=== PATIENT | male | born 1990 | race Caucasian/White ===

== ENCOUNTER 2018-05-08 15:59 | Inpatient (IN) | payer MEDICAID, SELFPAY ==
[2018-05-08 16:13] VITALS: BMI 20.5
[2018-05-08 16:26] VITALS: BP 115/60; PULSE 94; RESP 16; TEMP 35.7; O2SAT 95
[2018-05-08] MEDS: Buprenorphine HCl 2 MG TAB.SUBL SL (17:28)
[2018-05-08] MEDS: cloNIDine HCl 0.1 MG Tablet PO (17:50)
[2018-05-08] MEDS: hydrOXYzine PAM 25 MG Capsule 50 MG PO (17:50)
[2018-05-08] MEDS: Azithromycin 250 MG Tablet 500 MG PO (17:50)
--- NOTE | 2018-05-08 18:10 | PCM.HP.STD ---
Problem List (1) Heroin dependence Status: Chronic (2) Hepatitis C Status: Chronic Qualifiers: Viral hepatitis chronicity: carrier Qualified Code(s): B18.2 - Chronic viral hepatitis C (3) Hepatitis B Status: Chronic Qualifiers: Viral hepatitis chronicity: carrier Qualified Code(s): B18.1 - Chronic viral hepatitis B without delta-agent (4) Nicotine dependence Status: Acute Qualifiers: Nicotine product type: cigarettes (5) Heroin withdrawal Status: Acute History of Present Illness Date of Admission: 05/08/18 Chief Complaint: Heroin withdrawal Patient is a 27 yo WM who presents with heroin withdrawal, admitted through [facility]. He has been using heroin on and off since age 14. He currently uses 1.5 to 2 gram of heroin IV daily, with last use around 3 hours prior to admission. He has some restlessness, but no abdominal pain, nausea, vomiting, or tremor. He is complaining of URI symptoms with productive cough. He felt feverish earlier. He had inpatient treatment followed by Suboxone outpatient treatment about one year ago. He maintained treatment for about 8 month but had to stop due to lack of insurance. He relapsed and using for past 5 month. Past Medical History Past Medical History (Chronic Problems): Chronic Problems (Last Updated 05/08/18 @ 18:09 by Shamar Villanueva MD) Heroin dependence (Chronic) Hepatitis C (Chronic) Hepatitis B (Chronic) Medical History: Medical History (Last Reviewed 05/08/18 @ 18:16 by Shamar Villanueva MD) Hepatitis B B19.10 Hepatitis C B19.20 Heroin dependence F11.20 Allergies No Known Allergies Allergy (Verified 05/08/18 16:13) Home Medications: Ambulatory Orders Medication Instructions Recorded NK [NK] 05/08/18 Surgical History: no surgical history Smoking Status: Current some day smoker Alcohol: None Drugs: Heroin - *Family History Maternal History Items: Heart Disease - Maternal grandfather. Review of Systems Comment: ROS: In general: Patient has been in fair health. No significant constitutional symptoms. HEENT: Unremarkable. Patient denied of any dizziness, chronic headache, blurred vision, double vision, dry mouth, or nasal congestion. CV/respiratory: There is no exertional shortness of breath, chest pain, palpitation, wheezing, cough, claudication, cold feet, or peripheral edema. GI: Patient denied any abdominal pain, nausea, vomiting, diarrhea, constipation, melena, or hematochezia. : Patient denied any significant urinary symptoms. Neurology: Unremarkable. There is no history of seizure as an adult. Psychological: Unremarkable. Endocrine: Unremarkable. Musculoskeletal: Unremarkable. VTE Information - Inpt Only VTE Present on Admission: No VTE Mechan Device Prophylaxis: None Reason prophylaxis not ordered:: Treatment Not Indicated - early ambulation. Patient Problems: Active and Suspected Problems (Last Updated 05/08/18 @ 18:09 by Shamar Villanueva MD) Nicotine dependence (Acute) Heroin withdrawal (Acute) Objective: In general, patient is a somewhat cachectic appearing young male. HEENT: Head is atraumatic, and normocephalic. Pupils are equal, round, and reactive to light and accommodations. Neck is supple. There is no lymphadenopathy, or thyromegaly. Oral mucosa is pink, and moist. There are no lesions. Heart: Auscultation is normal with regular rhythm and rate. There is no extra heart sounds, or murmurs. S1 and S2 are present. Point of maximal impulse is not displaced. Lungs: Lungs are clear to auscultation bilaterally. There is no wheezing, or crackles. Abdomen: Abdominal wall is non-tender, and non-distended. There is no palpable mass or organomegaly. Normoactive bowel sounds are present. Extremities: There is no cyanosis or clubbing. Peripheral pulses are palpable. There is no edema. Skin: Needle tracks arms, hands, and distal legs. Neurological: CN II - XII are intact. Sensory and motor functions are grossly normal with no obvious deficit. Cerebellar functions are within normal range. Gait was not tested. - Physical Exam Vital Signs Temp Pulse Resp BP Pulse Ox 96.3 F L 94 16 115/60 95 05/08/18 16:26 05/08/18 16:26 05/08/18 16:26 05/08/18 16:26 05/08/18 16:26 Oxygen Delivery Method Room Air Weight: 151 lb Body Mass Index (BMI) 20.5 Assessment/Plan All Active Problems (Last Updated 05/08/18 @ 18:09 by Shamar Villanueva MD) Nicotine dependence (Acute) Heroin withdrawal (Acute) Patient is a 27 yo WM who presents with heroin withdrawal, admitted through [facility]. He has been using heroin on and off since age 14. He currently uses 1.5 to 2 gram of heroin IV daily, with last use around 3 hours prior to admission. He has some restlessness, but no abdominal pain, nausea, vomiting, or tremor. He is complaining of URI symptoms with productive cough. He felt feverish earlier. He had inpatient treatment followed by Suboxone outpatient treatment about one year ago. He maintained treatment for about 8 month but had to stop due to lack of insurance. He relapsed and using for past 5 month. #1 Heroin dependency / withdrawal. Follow [facility] protocol with Subutex tapering. #2 Nicotine dependency. Nicotine patch provided. Cessation of smoking was advised. #3 History of Hep B / C. Check CMP. He needs follow up as outpatient. VTE prophylaxis: early ambulation. GI prophylaxis: H2 jennifer po. He is full code. Disposition: To be determined. Code Visit Inpatient E&M: 25249 Init Hosp L2
[2018-05-08 18:55] LABS: Absolute Lymphocyte Count 1.07 X10^3/ul (0.83-4.51); Absolute Neutrophil Count 5.9 X10^3/uL (2.0-7.7); Basophil# 0.01 X10^3/uL; Basophil% 0.1 % (0-1); Eosinophil# 0.04 X10^3/uL; Eosinophils% 0.5 % (0-5); Hematocrit 40.5 % (40-54); Hemoglobin 13.5 g/dl (13.0-16.5); Lymphocyte # 1.07 X10^3/ul (4.0); Lymphocyte % 13.9 % (19-41); Mean Corp Hgb Conc 33.3 g/gl (32-36); Mean Corpuscular Hgb 30.9 pg (27.0-32.0); Mean Corpuscular Volume 92.7 fL (80-94); Mean Platelet Vol. 10.1 fl (6.2-12.0); Monocyte# 0.65 X10^3/uL; Monocyte% 8.4 % (0-10); Neutrophil # 5.91 X10^3/uL (2.7-7.7); Neutrophil % 76.8 % (47-70); POSITIVE COUNT NO; POSITIVE DIFFERENTIAL NO; POSITIVE MORPHOLOGY NO; Platelet Count 219 K/mm3 (150-450); RBC Distribution Width CV 12.8 % (11.6-14.6); RBC Distribution Width SD 42.7 fl (35.1-43.9); Red Blood Count 4.37 M/mm3 (4.6-6.2); White Blood Count 7.7 K/mm3 (4.4-11.0)
[2018-05-08 19:28] LABS: ALB/GLOB Ratio 0.8 RATIO (0.9-2.4); AST(SGOT) 10 U/L (15-37); Alanine Aminotransfer ALT/SGPT 19 U/L (16-61); Albumin, Serum 3.5 g/dL (3.2-5.0); Alkaline Phosphatase 74 U/L (45-117); Anion Gap 4 (5-15); BUN 11 mg/dL (7-18); BUN/Creat Ratio 11.4 RATIO (10-20); Calcium,Total 8.8 mg/dL (8.5-10.1); Chloride 105 mmol/L (98-107); Creatinine, Serum 0.97 mg/dL (0.70-1.30); EST Glomerular Filtration Rate 98 mL/min (>60); Est Glom Filt Rate - Afr Amer 119 mL/min (>60); Estimated Creatinine Clearance 109.84 ml/min; Globulin 4.4 g/dL (2.2-4.2); Glucose 71 mg/dL (74-106); Potassium 3.3 mmol/L (3.5-5.1); Protein, Total 7.9 g/dL (6.4-8.2); Sodium Level 138 mmol/L (136-145)
[2018-05-08 19:32] VITALS: BP 104/54; PULSE 77; RESP 16; TEMP 36.8; O2SAT 96
[2018-05-08] MEDS: Famotidine 20 MG Tablet PO (22:15)
[2018-05-09 01:30] VITALS: BP 114/66; PULSE 74; RESP 16; TEMP 36.9
[2018-05-09] MEDS: Buprenorphine HCl 2 MG TAB.SUBL SL ×3 (01:30→18:18)
[2018-05-09] MEDS: Pramipexole Di-HCl 0.25 MG Tablet PO ×2 (01:35→21:55)
[2018-05-09] MEDS: cloNIDine HCl 0.1 MG Tablet PO (01:35)
[2018-05-09 06:06] VITALS: BP 105/55; PULSE 62; RESP 16; TEMP 37.4
--- NOTE | 2018-05-09 08:05 | PCM.PN.HOSP ---
Patient Problems: Active and Suspected Problems (Last Reviewed 05/08/18 @ 18:16 by Shamar Villanueva MD) Nicotine dependence (Acute) Heroin withdrawal (Acute) Subjective: Patient with no acute events overnight per self and per nursing report. He states that he is feeling improved since initiation on Subutex and his withdrawal symptoms have lessened. He notes he did not sleep well but otherwise no acute complaints at this time. Patient denies fevers, chills, nausea, emesis, abdominal pain, chest pain or dyspnea. Objective: Physical Examination: General: awake, alert, oriented x 3 and cooperative, seated upright in bed in no apparent distress. Skin: normal color, turgor, no icterus, cyanosis except several diffuse track boyce on bilateral extremities primarily in the hands and feet with no appearance of acute infection. HEENT: AT/NC, EOMI, PERRLA, MMM. Lungs: CTA bilaterally, moderate effort, mild decrease BL bases, no rales, ronchi or wheezing. Heart: Regular rate and rhythm; no gallop, rub audible. Abdomen: soft, thin habitus, NTTP, ND, normal BS. Extremities: no cyanosis, clubbing, see skin. Neurological: patient awake, alert, oriented x 3; cognitive function intact; pupils equally reactive to light and accomodation; cranial nerves II-XII grossly normal, moving all 4 extremities, no focal deficits, strength mildly to moderately globally decreased secondary to acute presentation. Psychiatric: affect appears normal, no acute evidence of depressive or anxiety feelings. Vitals/I&O's: Vital Signs Temp Pulse Resp BP Pulse Ox 99.3 F H 62 16 105/55 L 96 05/09/18 06:06 05/09/18 06:06 05/09/18 06:06 05/09/18 06:06 05/08/18 19:32 Oxygen Delivery Method Room Air Weight: 151 lb Body Mass Index (BMI) 20.5 Laboratory Results 05/08/18 18:36: WBC 7.7, RBC 4.37 L, Hgb 13.5, Hct 40.5, MCV 92.7, MCH 30.9, MCHC 33.3, RDW 12.8, RDW Differential 42.7, Plt Count 219, MPV 10.1, Immature Gran % (Auto) 0.300, Neut % (Auto) 76.8 H, Lymph % (Auto) 13.9 L, [place] % (Auto) 8.4, Eos % (Auto) 0.5, Baso % (Auto) 0.1, Absolute Neuts (auto) 5.9, Absolute Lymphs (auto) 1.07, Total Counted Not Reportable 05/08/18 18:36: Sodium 138, Potassium 3.3 L, Chloride 105, Carbon Dioxide 29.0, Anion Gap 4 L, BUN 11, Creatinine 0.97, Estim Creat Clear Calc 109.84, Est GFR (MDRD) Af Amer 119, Est GFR (MDRD) Non-Af 98, BUN/Creatinine Ratio 11.4, Glucose 71 L, Calcium 8.8, Total Bilirubin 0.30, AST 10 L, ALT 19, Alkaline Phosphatase 74, Total Protein 7.9, Albumin 3.5, Globulin 4.4 H, Albumin/Globulin Ratio 0.8 L Current Medications Acetaminophen (Tylenol) 500 mg PO Q4H PRN PRN PRN Reason: Temp > 100.4 F Al Hydroxide/Mg Hydroxide (Mylanta Ii) 30 ml PO Q6H PRN PRN PRN Reason: Gastric burning Azithromycin (Zithromax) 500 mg PO Q24 [facility] Last Admin: 05/08/18 17:50 Dose: 500 mg Bisacodyl (Dulcolax) 5 mg PO DAILY PRN PRN PRN Reason: Constipation Buprenorphine HCl (Buprenorphine Hcl) 4 mg SL Q8H [facility] PRN Reason: Taper Stop: 05/11/18 21:29 Last Admin: 05/09/18 01:30 Dose: 4 mg Chlordiazepoxide (Librium) 25 mg PO Q6H PRN PRN PRN Reason: Anxiety Score 2-3/3 Clonidine (Catapres) 0.1 mg PO Q2H PRN PRN PRN Reason: Hot/Cold Sweats or Anxiety Last Admin: 05/09/18 01:35 Dose: 0.1 mg Dicyclomine HCl (Bentyl) 20 mg PO Q6H PRN PRN PRN Reason: Abdomnial Discomfort Famotidine (Pepcid) 20 mg PO BID [facility] Last Admin: 05/08/18 22:15 Dose: 20 mg Folic Acid (Folic Acid) 1 mg PO DAILY@0800 [facility] Hydroxyzine HCl (Vistaril Vial) 50 mg IM Q6H PRN PRN PRN Reason: Breakthrough Anxiety Hydroxyzine Pamoate (Vistaril Pamoate Capsule) 50 mg PO Q6H PRN PRN PRN Reason: Mild Anxiety (score 1/3) Last Admin: 05/08/18 17:50 Dose: 50 mg Ibuprofen (Motrin) 600 mg PO Q8H PRN PRN PRN Reason: Mild-Moderate Pain (1-5/10) Loperamide HCl (Imodium) 2 - 4 mg PO UD PRN PRN Reason: LOOSE STOOLS Magnesium Hydroxide (Milk Of Magnesia) 30 ml PO DAILY PRN PRN PRN Reason: Constipation Methocarbamol (Methocarbamol) 750 mg PO Q6H PRN PRN PRN Reason: Muscle Aches Multivitamins/Minerals (Multivitamin With Minerals) 1 tablet PO DAILYCM [facility] Nicotine (Nicoderm Cq (Pbkc)) 21 mg TRANSDERM. DAILY [facility] Last Admin: 05/08/18 17:50 Dose: 21 mg Nutritional Formula (Lactose Free) (Ensure Enlive) 120 ml PO 4X/DAY [facility] Ondansetron HCl (Zofran) 4 mg IV Q8H PRN PRN PRN Reason: NAUSEA Ondansetron HCl (Zofran Odt) 4 mg PO Q6H PRN PRN PRN Reason: NAUSEA Pramipexole Dihydrochloride (Mirapex) 0.25 mg PO Q12H PRN PRN PRN Reason: RESTLESS LEGS Last Admin: 05/09/18 01:35 Dose: 0.25 mg Quetiapine Fumarate (Seroquel) 25 mg PO Q6H PRN PRN PRN Reason: Moderate Anxiety (score 2/3) Senna (Senokot) 1 tablet PO QHS PRN PRN Reason: Constipation Thiamine HCl (Vitamin B1) 100 mg PO DAILYCM [facility] Trazodone HCl (Desyrel) 50 mg PO QHS [facility] Medical Necessity - Tobacco Use Smoking Status: Current some day smoker Assessment/Plan All Active Problems (Last Reviewed 05/08/18 @ 18:16 by Shamar Villanueva MD) Nicotine dependence (Acute) Heroin withdrawal (Acute) The patient is a 27 y/o M w/ PMHx: History of IVDA w/ Heroine intermittently since age 14 (1.5-2 gm daily average, last use ~ 3 hours prior to admission), Hx ? Hepatitis B and C, Tobacco use who presents to the [facility] on 05/08/18 w/ noted acute opiate withdrawal. (1) Acute Opiate Withdrawal: Admitted to [place], routine labs obtained, initiated and continued on [facility] service protocol with tapering course of Subutex, as needed Seroquel, Librium, Sinemet, Catapres, Bentyl, Vistaril, IV fluids, IV antiemetics, Tylenol as needed for pain. Once patient clinically improved and completion of taper nearing will plan [facility] assistance for transition to next level of rehabilitation care. (2) Polysubstance Abuse, IVDA Hx, ? History of Hepatitis C and B, Chronic: Patient currently not candidate for hep C treatment currently as needs to be clean, sober x 6 months w/ documented attendance NA or AA meetings, counseling and ongoing negative drug screens of which he was educated. HIV, hepatitis panel pending to assess for co-infection pending. Encouraged PCP establishment and follow-up. (3) Tobacco Abuse: Encouraged cessation, inpatient consultation per RT, NR if desired. (4) Hypokalemia: Admission K+ 3.3, supplementation given, mag pending. (5) DVT Prophylaxis: Low risk, ambulation advised. Code Visit Inpatient E&M: 40051 Subs Hosp L2
--- NOTE | 2018-05-09 08:16 | PN_ITS ---
Patient Problems: Active and Suspected Problems (Last Reviewed 05/08/18 @ 18:16 by Shamar Villanueva MD) Nicotine dependence (Acute) Heroin withdrawal (Acute) Subjective: Patient with no acute events overnight per self and per nursing report. He states that he is feeling improved since initiation on Subutex and his withdrawal symptoms have lessened. He notes he did not sleep well but otherwise no acute complaints at this time. Patient denies fevers, chills, nausea, emesis, abdominal pain, chest pain or dyspnea. Objective: Physical Examination: General: awake, alert, oriented x 3 and cooperative, seated upright in bed in no apparent distress. Skin: normal color, turgor, no icterus, cyanosis except several diffuse track boyce on bilateral extremities primarily in the hands and feet with no appearance of acute infection. HEENT: AT/NC, EOMI, PERRLA, MMM. Lungs: CTA bilaterally, moderate effort, mild decrease BL bases, no rales, ronchi or wheezing. Heart: Regular rate and rhythm; no gallop, rub audible. Abdomen: soft, thin habitus, NTTP, ND, normal BS. Extremities: no cyanosis, clubbing, see skin. Neurological: patient awake, alert, oriented x 3; cognitive function intact; pupils equally reactive to light and accomodation; cranial nerves II-XII grossly normal, moving all 4 extremities, no focal deficits, strength mildly to moderately globally decreased secondary to acute presentation. Psychiatric: affect appears normal, no acute evidence of depressive or anxiety feelings. Vitals/I&O's: Vital Signs Temp Pulse Resp BP Pulse Ox 99.3 F H 62 16 105/55 L 96 05/09/18 06:06 05/09/18 06:06 05/09/18 06:06 05/09/18 06:06 05/08/18 19:32 Oxygen Delivery Method Room Air Weight: 151 lb Body Mass Index (BMI) 20.5 Laboratory Results 05/08/18 18:36: WBC 7.7, RBC 4.37 L, Hgb 13.5, Hct 40.5, MCV 92.7, MCH 30.9, MCHC 33.3, RDW 12.8, RDW Differential 42.7, Plt Count 219, MPV 10.1, Immature Gran % (Auto) 0.300, Neut % (Auto) 76.8 H, Lymph % (Auto) 13.9 L, [place] % (Auto) 8.4, Eos % (Auto) 0.5, Baso % (Auto) 0.1, Absolute Neuts (auto) 5.9, Absolute Lymphs (auto) 1.07, Total Counted Not Reportable 05/08/18 18:36: Sodium 138, Potassium 3.3 L, Chloride 105, Carbon Dioxide 29.0, Anion Gap 4 L, BUN 11, Creatinine 0.97, Estim Creat Clear Calc 109.84, Est GFR ( MDRD) Af Amer 119, Est GFR (MDRD) Non-Af 98, BUN/Creatinine Ratio 11.4, Glucose 71 L, Calcium 8.8, Total Bilirubin 0.30, AST 10 L, ALT 19, Alkaline Phosphatase 74, Total Protein 7.9, Albumin 3.5, Globulin 4.4 H, Albumin/Globulin Ratio 0.8 L Current Medications Acetaminophen (Tylenol) 500 mg PO Q4H PRN PRN PRN Reason: Temp > 100.4 F Al Hydroxide/Mg Hydroxide (Mylanta Ii) 30 ml PO Q6H PRN PRN PRN Reason: Gastric burning Azithromycin (Zithromax) 500 mg PO Q24 [facility] Last Admin: 05/08/18 17:50 Dose: 500 mg Bisacodyl (Dulcolax) 5 mg PO DAILY PRN PRN PRN Reason: Constipation Buprenorphine HCl (Buprenorphine Hcl) 4 mg SL Q8H [facility] PRN Reason: Taper Stop: 05/11/18 21:29 Last Admin: 05/09/18 01:30 Dose: 4 mg Chlordiazepoxide (Librium) 25 mg PO Q6H PRN PRN PRN Reason: Anxiety Score 2-3/3 Clonidine (Catapres) 0.1 mg PO Q2H PRN PRN PRN Reason: Hot/Cold Sweats or Anxiety Last Admin: 05/09/18 01:35 Dose: 0.1 mg Dicyclomine HCl (Bentyl) 20 mg PO Q6H PRN PRN PRN Reason: Abdomnial Discomfort Famotidine (Pepcid) 20 mg PO BID [facility] Last Admin: 05/08/18 22:15 Dose: 20 mg Folic Acid (Folic Acid) 1 mg PO DAILY@0800 [facility] Hydroxyzine HCl (Vistaril Vial) 50 mg IM Q6H PRN PRN PRN Reason: Breakthrough Anxiety Hydroxyzine Pamoate (Vistaril Pamoate Capsule) 50 mg PO Q6H PRN PRN PRN Reason: Mild Anxiety (score 1/3) Last Admin: 05/08/18 17:50 Dose: 50 mg Ibuprofen (Motrin) 600 mg PO Q8H PRN PRN PRN Reason: Mild-Moderate Pain (1-5/10) Loperamide HCl (Imodium) 2 - 4 mg PO UD PRN PRN Reason: LOOSE STOOLS Magnesium Hydroxide (Milk Of Magnesia) 30 ml PO DAILY PRN PRN PRN Reason: Constipation Methocarbamol (Methocarbamol) 750 mg PO Q6H PRN PRN PRN Reason: Muscle Aches Multivitamins/Minerals (Multivitamin With Minerals) 1 tablet PO DAILYCM [facility] Nicotine (Nicoderm Cq (Pbkc)) 21 mg TRANSDERM. DAILY [facility] Last Admin: 05/08/18 17:50 Dose: 21 mg Nutritional Formula (Lactose Free) (Ensure Enlive) 120 ml PO 4X/DAY [facility] Ondansetron HCl (Zofran) 4 mg IV Q8H PRN PRN PRN Reason: NAUSEA Ondansetron HCl (Zofran Odt) 4 mg PO Q6H PRN PRN PRN Reason: NAUSEA Pramipexole Dihydrochloride (Mirapex) 0.25 mg PO Q12H PRN PRN PRN Reason: RESTLESS LEGS Last Admin: 05/09/18 01:35 Dose: 0.25 mg Quetiapine Fumarate (Seroquel) 25 mg PO Q6H PRN PRN PRN Reason: Moderate Anxiety (score 2/3) Senna (Senokot) 1 tablet PO QHS PRN PRN Reason: Constipation Thiamine HCl (Vitamin B1) 100 mg PO DAILYCM [facility] Trazodone HCl (Desyrel) 50 mg PO QHS [facility] Medical Necessity - Tobacco Use Smoking Status: Current some day smoker Assessment/Plan All Active Problems (Last Reviewed 05/08/18 @ 18:16 by Shamar Villanueva MD) Nicotine dependence (Acute) Heroin withdrawal (Acute) The patient is a 27 y/o M w/ PMHx: History of IVDA w/ Heroine intermittently since age 14 (1.5-2 gm daily average, last use ~ 3 hours prior to admission), Hx ? Hepatitis B and C, Tobacco use who presents to the [facility] at [facility] on 05/08/18 w/ noted acute opiate withdrawal. (1) Acute Opiate Withdrawal: Admitted to [place], routine labs obtained, initiated and continued on [facility] service protocol with tapering course of Subutex, as needed Seroquel, Librium, Sinemet, Catapres, Bentyl, Vistaril, IV fluids, IV antiemetics, Tylenol as needed for pain. Once patient clinically improved and completion of taper nearing will plan [facility] assistance for transition to next level of rehabilitation care. (2) Polysubstance Abuse, IVDA Hx, ? History of Hepatitis C and B, Chronic: Patient currently not candidate for hep C treatment currently as needs to be clean, sober x 6 months w/ documented attendance NA or AA meetings, counseling and ongoing negative drug screens of which he was educated. HIV, hepatitis panel pending to assess for co-infection pending. Encouraged PCP establishment and follow-up. (3) Tobacco Abuse: Encouraged cessation, inpatient consultation per RT, NR if desired. (4) Hypokalemia: Admission K+ 3.3, supplementation given, mag pending. (5) DVT Prophylaxis: Low risk, ambulation advised. Code Visit Inpatient E&M: 18214 Subs Hosp L2
[2018-05-09 08:42] LABS: Magnesium 2.2 mg/dL (1.6-2.6)
[2018-05-09] MEDS: Azithromycin 250 MG Tablet 500 MG PO (09:45)
[2018-05-09] MEDS: Multivitamins,Ther W-Minerals Tablet 1 TABLET PO (09:46)
[2018-05-09] MEDS: Thiamine Hydrochloride 100 MG Tablet PO (09:46)
[2018-05-09] MEDS: Famotidine 20 MG Tablet PO ×2 (09:46→21:55)
[2018-05-09] MEDS: Folic Acid 1 MG Tablet PO (09:47)
[2018-05-09 09:57] LABS: HIV - WCH Non-Reactive (Nonreactive)
[2018-05-09 10:00] VITALS: BP 108/59; PULSE 66; RESP 16; TEMP 36.9
[2018-05-09 14:00] VITALS: BP 115/68; PULSE 71; RESP 16; TEMP 37.2
[2018-05-09 18:00] VITALS: BP 122/74; PULSE 80; RESP 16; TEMP 36.9
[2018-05-09 20:47] VITALS: BP 116/55; PULSE 72; RESP 16; TEMP 36.5
[2018-05-09] MEDS: QUEtiapine 25 MG Tablet PO (21:55)
[2018-05-09] MEDS: chlordiazePOXIDE 25 MG Capsule PO (21:55)
[2018-05-09] MEDS: traZODone 50 MG Tablet PO (21:55)
[2018-05-10] MEDS: Buprenorphine HCl 2 MG TAB.SUBL SL ×2 (01:32→09:30)
[2018-05-10 01:35] VITALS: BP 108/59; PULSE 61; RESP 16; TEMP 37.1
--- NOTE | 2018-05-10 08:04 | PCM.PN.HOSP ---
Patient Problems: Active and Suspected Problems (Last Reviewed 05/08/18 @ 18:16 by Shamar Villanueva MD) Nicotine dependence (Acute) Heroin withdrawal (Acute) Subjective: Patient with no acute events overnight per self and per nursing report. Patient states he has been up and moving and feels improved since initial presentation with near resolution of withdrawal symptoms. Discussed negative HIV, pending hepatitis panel with questionable history of positive B and C status. Again encouraged follow-up once sober, clean, documented meeting attendance ?6 months with either GI or infectious disease for treatment. Patient denies fevers, chills, nausea, emesis, abdominal pain, chest pain or dyspnea. Objective: Physical Examination: General: awake, alert, oriented x 3 and cooperative, seated upright in bed, more alert and less sluggish this morning. Skin: normal color, turgor, no icterus, cyanosis except several diffuse track boyce on bilateral extremities primarily in the hands and feet with no appearance of acute infection. HEENT: AT/NC, EOMI, PERRLA, MMM. Lungs: CTA bilaterally, moderate effort, mild decrease BL bases, no rales, ronchi or wheezing. Heart: Regular rate and rhythm; no gallop, rub audible. Abdomen: soft, thin habitus, NTTP, ND, normal BS. Extremities: no cyanosis, clubbing, see skin. Neurological: patient awake, alert, oriented x 3; cognitive function intact; pupils equally reactive to light and accomodation; cranial nerves II-XII grossly normal, moving all 4 extremities, no focal deficits, strength proved, mildly globally decreased. Psychiatric: affect appears improved, more awake, more alert this morning and interactive, no acute evidence of depressive or anxiety feelings. Vitals/I&O's: Vital Signs Temp Pulse Resp BP Pulse Ox 98.8 F 61 16 108/59 L 96 05/10/18 01:35 05/10/18 01:35 05/10/18 01:35 05/10/18 01:35 05/08/18 19:32 Oxygen Delivery Method Room Air Weight: 150 lb 15.984 oz Body Mass Index (BMI) 20.5 Laboratory Results 05/09/18 08:10: Magnesium 2.2 05/09/18 08:10: Hepatitis A IgM Ab Pending, Hepatitis A Ab Total Pending, Hep Bs Antigen Pending, Hep B Core Total Ab Pending, Hep B Core IgM Ab Pending, Hepatitis C Comment Pending 05/09/18 08:10: HIV 1&2 Antibody Non-Reactive Current Medications Acetaminophen (Tylenol) 500 mg PO Q4H PRN PRN PRN Reason: Temp > 100.4 F Al Hydroxide/Mg Hydroxide (Mylanta Ii) 30 ml PO Q6H PRN PRN PRN Reason: Gastric burning Azithromycin (Zithromax) 500 mg PO Q24 [facility] Last Admin: 05/09/18 09:45 Dose: 500 mg Bisacodyl (Dulcolax) 5 mg PO DAILY PRN PRN PRN Reason: Constipation Buprenorphine HCl (Buprenorphine Hcl) 2 mg SL Q8H [facility] PRN Reason: Taper Stop: 05/11/18 21:29 Last Admin: 05/10/18 01:32 Dose: 2 mg Chlordiazepoxide (Librium) 25 mg PO Q6H PRN PRN PRN Reason: Anxiety Score 2-3/3 Last Admin: 05/09/18 21:55 Dose: 25 mg Clonidine (Catapres) 0.1 mg PO Q2H PRN PRN PRN Reason: Hot/Cold Sweats or Anxiety Last Admin: 05/09/18 01:35 Dose: 0.1 mg Dicyclomine HCl (Bentyl) 20 mg PO Q6H PRN PRN PRN Reason: Abdomnial Discomfort Famotidine (Pepcid) 20 mg PO BID [facility] Last Admin: 05/09/18 21:55 Dose: 20 mg Folic Acid (Folic Acid) 1 mg PO DAILY@0800 [facility] Last Admin: 05/09/18 09:47 Dose: 1 mg Hydroxyzine HCl (Vistaril Vial) 50 mg IM Q6H PRN PRN PRN Reason: Breakthrough Anxiety Hydroxyzine Pamoate (Vistaril Pamoate Capsule) 50 mg PO Q6H PRN PRN PRN Reason: Mild Anxiety (score 1/3) Last Admin: 05/08/18 17:50 Dose: 50 mg Ibuprofen (Motrin) 600 mg PO Q8H PRN PRN PRN Reason: Mild-Moderate Pain (1-5/10) Loperamide HCl (Imodium) 2 - 4 mg PO UD PRN PRN Reason: LOOSE STOOLS Magnesium Hydroxide (Milk Of Magnesia) 30 ml PO DAILY PRN PRN PRN Reason: Constipation Methocarbamol (Methocarbamol) 750 mg PO Q6H PRN PRN PRN Reason: Muscle Aches Multivitamins/Minerals ([facility]ivitamin With Minerals) [facility] Last Admin: 05/09/18 09:46 Dose: 1 tablet Nicotine (Nicoderm Cq (Pbkc)) 21 mg TRANSDERM. DAILY [facility] Last Admin: 05/09/18 09:46 Dose: 21 mg Nutritional Formula (Lactose Free) (Ensure Enlive) 120 ml PO 4X/DAY [facility] Last Admin: 05/09/18 21:55 Dose: 120 ml Ondansetron HCl (Zofran) 4 mg IV Q8H PRN PRN PRN Reason: NAUSEA Ondansetron HCl (Zofran Odt) 4 mg PO Q6H PRN PRN PRN Reason: NAUSEA Pramipexole Dihydrochloride (Mirapex) 0.25 mg PO Q12H PRN PRN PRN Reason: RESTLESS LEGS Last Admin: 05/09/18 21:55 Dose: 0.25 mg Quetiapine Fumarate (Seroquel) 25 mg PO Q6H PRN PRN PRN Reason: Moderate Anxiety (score 2/3) Last Admin: 05/09/18 21:55 Dose: 25 mg Senna (Senokot) 1 tablet PO QHS PRN PRN Reason: Constipation Thiamine HCl (Vitamin B1) [facility] Last Admin: 05/09/18 09:46 Dose: 100 mg Trazodone HCl (Desyrel) 50 mg PO QHS [facility] Last Admin: 18 21:55 Dose: 50 mg Medical Necessity - Tobacco Use Smoking Status: Current some day smoker Assessment/Plan All Active Problems (Last Reviewed 05/08/18 @ 18:16 by Shamar Villanueva MD) Nicotine dependence (Acute) Heroin withdrawal (Acute) The patient is a 27 y/o M w/ PMHx: History of IVDA w/ Heroine intermittently since age 14 (1.5-2 gm daily average, last use ~ 3 hours prior to admission), Hx ? Hepatitis B and C, Tobacco use who presents to the [facility] at [facility] on 05/08/18 w/ noted acute opiate withdrawal. (1) Acute Opiate Withdrawal: Admitted to [place], routine labs obtained, initiated and continued on [facility] service protocol with tapering course of Subutex, as needed Seroquel, Librium, Sinemet, Catapres, Bentyl, Vistaril, IV fluids, IV antiemetics, Tylenol as needed for pain. Once patient clinically improved and completion of taper nearing will plan [facility] assistance for transition to next level of rehabilitation care. (2) Polysubstance Abuse, IVDA Hx, ? History of Hepatitis C and B, Chronic: Patient currently not candidate for hep C treatment currently as needs to be clean, sober x 6 months w/ documented attendance NA or AA meetings, counseling and ongoing negative drug screens of which he was educated. HIV obtained and non-reactive, hepatitis panel pending to assess for co-infection pending. Encouraged strongly to continue on this pathway with once meeting criteria follow-up with GI versus infectious disease unless his primary care physician is willing to initiate therapy for his hepatitis especially given history of possible coinfection with B. (3) Tobacco Abuse: Encouraged cessation, inpatient consultation per RT, NR if desired. (4) Hypokalemia: Admission K+ 3.3, supplementation given, mag normal. (5) DVT Prophylaxis: Low risk, ambulation advised. Code Visit Inpatient E&M: 24635 Subs Hosp L2
[2018-05-10 08:11] LABS: HEPATITIS B SURFACE AG Negative (Negative); Hepatitis A AB, Total Negative (Negative); Hepatitis A IgM Antibody Negative (Negative); Hepatitis B Core AB IgM Negative (Negative); Hepatitis C Ab >11.0 s/co ratio (0.0-0.9)
[2018-05-10 09:30] VITALS: BP 129/82; PULSE 58; RESP 16; TEMP 36.7; O2SAT 100
[2018-05-10] MEDS: Multivitamins,Ther W-Minerals Tablet 1 TABLET PO (09:30)
[2018-05-10] MEDS: Famotidine 20 MG Tablet PO (09:30)
[2018-05-10] MEDS: Thiamine Hydrochloride 100 MG Tablet PO (09:30)
[2018-05-10] MEDS: Folic Acid 1 MG Tablet PO (09:30)
[2018-05-10] MEDS: Azithromycin 250 MG Tablet 500 MG PO (09:30)
[2018-05-10 09:36] VITALS: BP 129/82; PULSE 58; RESP 18; TEMP 36.7
[2018-05-10 12:51] LABS: Hep B Surface Antibodies Reactive (.)
[2018-05-10 12:54] LABS: Hepatitis B Core Ab Total Positive (Negative)
[2018-05-10 14:00] VITALS: BP 107/61; PULSE 85; RESP 16; TEMP 36.9
[2018-05-10 14:14] VITALS: BP 107/61; PULSE 85; RESP 16; TEMP 36.9; O2SAT 97
--- NOTE | 2018-05-10 16:11 | PCM.DC.SUM ---
Discharge Date and Diagnosis Date of Admission: 05/08/18 Date of Discharge: 05/10/18 - Primary Discharge Diagnosis (1) Acute Opiate Withdrawal (2) Polysubstance Abuse, IVDA Hx, History of Hepatitis C and B, Chronic, Confirmed on admission testing (3) Tobacco Abuse (4) Hypokalemia - Secondary Discharge Diagnosis Chronic Problems (Last Reviewed 05/08/18 @ 18:16 by Shamar Villanueva MD) Heroin dependence (Chronic) Hepatitis C (Chronic) Hepatitis B (Chronic) Hospital Course and Treatment Operations: None Procedures: None Summary of Care Provided: The patient is a 27 y/o M w/ PMHx: History of IVDA w/ Heroine intermittently since age 14 (1.5-2 gm daily average, last use ~ 3 hours prior to admission), Hx ? Hepatitis B and C, Tobacco use who presented to the [facility] at [facility] on 05/08/18 w/ noted acute opiate withdrawal. Admitted to [place], routine labs obtained, initiated and continued on [facility] service protocol with tapering course of Subutex, as needed Seroquel, Librium, Sinemet, Catapres, Bentyl, Vistaril, IV fluids, IV antiemetics, Tylenol as needed for pain. Given history of Polysubstance Abuse, IVDA Hx, History of Hepatitis C and B, Chronic obtained hepatitis panel confirmed hepatitis C and hepatitis B w/ appearance of prior infected status and HIV (non-reactive) w/ recommendation to patient to continue to attempt to remain clean, sober x 6 months w/ documented attendance NA or AA meetings, counseling and ongoing negative drug screens to meet criteria to be able to follow-up with GI versus infectious disease to initiate therapy for his hepatitis. On 05/10/18 afternoon, patient noted that he was required to serve sentence and his preference was to leave AMA to start his required time. Despite encouragement to remain and especially given above noted history with desire to see patient succeed and be candidate for hepatitis treatment, he left AMA. Home Medications: Medications to take at Discharge NK [NK] 05/08/18 Primary Care Physician: Care Physician,No Primary [Primary Care Provider] - Disposition: Home Minutes spent on discharge:: 35 Patient Condition:: Stable Medical Necessity - Tobacco Use Smoking Status: Current some day smoker Meaningful Use Info Meaningful Use Diagnoses (Choose all that apply): None applicable Code Visit Inpatient E&M: 76258 Disch Hosp
--- NOTE | 2018-05-10 16:11 | NURSING ---
PT SIGNED OUT AMA. SAID HE FELT FINE, DIDNT WANT TO/LIKE TO TAKE PILLS. HAS NOT TAKEN ANY PRN MEDS THROUGHOUT THE DAY. WITHDRAWAL SCALE 1. SAID HE JUST FELT STIR CRAZY. OFFERED TO MEDICATE TO HELP HIM RELAX BUT HE DID NOT WANT THAT. FRANCIS WITH [facility] WAS MADE AWARE AND CAME TO UNIT TO TRY TO GET PT TO STAY WELL. DR THOMAS ALSO AWARE PT LEFT AMA.
--- NOTE | 2018-05-10 16:15 | DS.PCM_ITS ---
Discharge Date and Diagnosis Date of Admission: 05/08/18 Date of Discharge: 05/10/18 - Primary Discharge Diagnosis (1) Acute Opiate Withdrawal (2) Polysubstance Abuse, IVDA Hx, History of Hepatitis C and B, Chronic, Confirmed on admission testing (3) Tobacco Abuse (4) Hypokalemia - Secondary Discharge Diagnosis Chronic Problems (Last Reviewed 05/08/18 @ 18:16 by Shamar Villanueva MD) Heroin dependence (Chronic) Hepatitis C (Chronic) Hepatitis B (Chronic) Hospital Course and Treatment Operations: None Procedures: None Summary of Care Provided: The patient is a 27 y/o M w/ PMHx: History of IVDA w/ Heroine intermittently since age 14 (1.5-2 gm daily average, last use ~ 3 hours prior to admission), Hx ? Hepatitis B and C, Tobacco use who presented to the [facility] at [facility] on 05/08/18 w/ noted acute opiate withdrawal. Admitted to [place], routine labs obtained, initiated and continued on [facility] service protocol with tapering course of Subutex, as needed Seroquel, Librium, Sinemet, Catapres, Bentyl, Vistaril, IV fluids, IV antiemetics, Tylenol as needed for pain. Given history of Polysubstance Abuse, IVDA Hx, History of Hepatitis C and B, Chronic obtained hepatitis panel confirmed hepatitis C and hepatitis B w/ appearance of prior infected status and HIV (non-reactive) w/ recommendation to patient to continue to attempt to remain clean, sober x 6 months w/ documented attendance NA or AA meetings, counseling and ongoing negative drug screens to meet criteria to be able to follow-up with GI versus infectious disease to initiate therapy for his hepatitis. On 05/10/18 afternoon, patient noted that he was required to serve sentence and his preference was to leave AMA to start his required time. Despite encouragement to remain and especially given above noted history with desire to see patient succeed and be candidate for hepatitis treatment, he left AMA. Home Medications: Medications to take at Discharge NK [NK] 05/08/18 Primary Care Physician: Care Physician,No Primary [Primary Care Provider] - Disposition: Home Minutes spent on discharge:: 35 Patient Condition:: Stable Medical Necessity - Tobacco Use Smoking Status: Current some day smoker Meaningful Use Info Meaningful Use Diagnoses (Choose all that apply): None applicable Code Visit Inpatient E&M: 76719 Disch Hosp
== END 2018-05-10 15:53 | disposition left against medical advice (07) | DRG 433 ==
PROVIDERS: Admitting Provider Hospitalist; Visit Provider Family Medicine
DX: F11.23 Opioid dependence with withdrawal (principal); B18.1 Chronic viral hepatitis B without delta-agent; B18.2 Chronic viral hepatitis C; F17.210 Nicotine dependence, cigarettes, uncomplicated; E87.6 Hypokalemia; F19.10 Other psychoactive substance abuse, uncomplicated
CPT/HCPCS: 36415; 80053; 83735; 85025; 86703; 86704; 86705; 86706; 86708; 86709; 86803; 87340; 97802